=== PATIENT | male | born 1945 | race American Indian/Alaskan Native ===

== ENCOUNTER 2017-05-10 16:39 | Emergency (ER) | payer MEDICARE ==
[2017-05-10 16:52] VITALS: BMI 34.9
[2017-05-10 17:43] LABS: BASO # 0.01 K/mm3 (0.0-2.0); BASO % 0.2 % (0.0-3.0); EOS % 0.2 % (1.5-5.0); GRAN # 3.88 (1.4-6.5); GRAN % 75.5 % (50.0-68.0); HEMOGLOBIN 13.6 g/dL (14.0-18.0); LYMPH # 0.7 (1.2-3.4); LYMPH % 13.4 % (22.0-35.0); MEAN CELL VOLUME 86.4 fl (80.0-105.0); MEAN CORPUSCULAR HEMOGLOBIN 30.4 pg (25.0-35.0); MEAN CORPUSCULAR HGB CONC 35.1 g/dl (31.0-37.0); MEAN PLATELET VOLUME 10.3 fl (7.0-11.0); MONO # 0.6 (0.1-0.6); MONO % 10.7 % (1.0-6.0); RBC 4.48 10^6/uL (3.5-6.1); RED CELL DISTRIBUTION WIDTH 12.6 % (11.5-14.5); WHITE BLOOD COUNT 5.1 10^3/ul (4.5-11.0)
--- NOTE | 2017-05-10 17:47 | ED PDOC ---
Arrival/HPI - General Chief Complaint: Cough, Cold, Congestion Time Seen by Provider: 05/10/17 17:02 Historian: Patient - History of Present Illness Narrative History of Present Illness (Text): 05/10/17 17:40 71yo male with PMHx of hypertension and Diabetes present with 4days history of nonproductive cough, fever, sore throat, generalized bodyache x 5days. He did not take any medication for his symptoms. States that his was sick with similar symptoms first. Denies chest pain, SOB, nausea, vomiting, diarrhea, dizziness, travel, any other complaint. Past Medical History - Provider Review Nursing Documentation Reviewed: Yes - Infectious Disease Hx of Infectious Diseases: None - Cardiac Hx Hypertension: Yes Hx Pacemaker: No - Neurological Hx Paralysis: No - Endocrine/Metabolic Hx Diabetes Mellitus Type 2: Yes - Hematological/Oncological Hx Blood Transfusions: No Hx Blood Transfusion Reaction: No - Musculoskeletal/Rheumatological Hx Musculoskeletal Disorders: Yes (KNEES HURT/ FEET ACHE FALLEN ARCHES) - Psychiatric Hx Emotional Abuse: No Hx Physical Abuse: No Hx Substance Use: No - Anesthesia Hx Anesthesia: No Hx Anesthesia Reactions: No Hx Malignant Hyperthermia: No - Suicidal Assessment Feels Threatened In Home Enviroment: No Family/Social History - Physician Review Nursing Documentation Reviewed: Yes Family/Social History: Unknown Family HX Smoking Status: Former Smoker Hx Alcohol Use: Yes (OCCASIONAL) Frequency of alcohol use: Socially Hx Substance Use: No Allergies/Home Meds Allergies/Adverse Reactions: Allergies No Known Allergies Allergy (Verified 05/10/17 16:52) Home Medications: Home Meds Medication Instructions Recorded Confirmed amLODIPine [Norvasc] 10 mg PO DAILY 04/21/15 05/10/17 Ascorbic Acid [Vitamin C] 500 mg PO DAILY 05/26/15 05/10/17 Metformin HCl [Fortamet] 500 mg PO BID 05/26/15 05/10/17 Vitamin B Complex [B Complex] 1 each PO DAILY 05/26/15 05/10/17 Vitamin E [Vitamin E 400 Units Cap] 400 iu PO DAILY 05/26/15 05/10/17 Review of Systems - Physician Review All systems were reviewed & negative as marked: Yes - Review of Systems Constitutional: Fatigue, Fevers Eyes: Normal ENT: Sore Throat Respiratory: Cough Cardiovascular: Normal Gastrointestinal: Normal Genitourinary Male: Normal Musculoskeletal: Normal Skin: Normal Neurological: Normal Endocrine: Normal Hemo/Lymphatic: Normal Psychiatric: Normal Physical Exam Vital Signs Reviewed: Yes Vital Signs Temp Pulse Resp BP Pulse Ox 05/10/17 18:39 98.5 F 81 16 134/66 97 05/10/17 16:55 100.7 F H 93 H 18 145/86 95 Temperature: Febrile Blood Pressure: Normal Pulse: Regular Respiratory Rate: Normal Appearance: Positive for: Well-Appearing, Non-Toxic, Comfortable Pain Distress: None Mental Status: Positive for: Alert and Oriented X 3 - Systems Exam Head: Present: Atraumatic, Normocephalic Pupils: Present: PERRL Extroacular Muscles: Present: EOMI Conjunctiva: Present: Normal Mouth: Present: Moist Mucous Membranes Pharnyx: Present: Normal Neck: Present: Normal Range of Motion Respiratory/Chest: Present: Clear to Auscultation, Good Air Exchange. No: Respiratory Distress, Accessory Muscle Use, Wheezes, Decreased Breath Sounds, Rales, Retracting, Rhonchi Cardiovascular: Present: Regular Rate and Rhythm, Normal S1, S2. No: Murmurs Abdomen: Present: Normal Bowel Sounds. No: Tenderness, Distention, Peritoneal Signs Back: Present: Normal Inspection Upper Extremity: Present: Normal Inspection. No: Cyanosis, Edema Lower Extremity: Present: Normal Inspection. No: Edema Neurological: Present: GCS=15, CN II-XII Intact, Speech Normal Skin: Present: Warm, Dry, Normal Color. No: Rashes Psychiatric: Present: Alert, Oriented x 3, Normal Insight, Normal Concentration Medical Decision Making ED Course and Treatment: 05/10/17 20:42 Pt was comfortable in ED. His lab was unremarkable. Chest xray NAD Secondary to pt's flu like symptoms, he was febrile on presentation. He was treated with Tamiflu and Zpack for URI. Antitussive and analgesic given. Referred to his PMD. TRT ED for any new or worsening symptoms. - Lab Interpretations Lab Results: 05/10/17 17:28 05/10/17 17:28 Lab Results 05/10/17 17:28: Sodium 133, Potassium 4.1, Chloride 96 L, Carbon Dioxide 26, Anion Gap 14, BUN 13, Creatinine 0.8, Est GFR ( Amer) > 60, Est GFR (Non- Af Amer) > 60, Random Glucose 167 H, Calcium 8.6, Total Bilirubin 0.7, AST 65 H , ALT 51, Alkaline Phosphatase 82, Total Protein 8.8 H, Albumin 3.8, Globulin 5.1, Albumin/Globulin Ratio 0.7 L 05/10/17 17:28: Influenza Typ A,B (EIA) Negative for flu a/b 05/10/17 17:28: WBC 5.1, RBC 4.48, Hgb 13.6 L, Hct 38.7 L, MCV 86.4, MCH 30.4, MCHC 35.1, RDW 12.6, Plt Count 137, MPV 10.3, Gran % 75.5 H, Lymph % (Auto) 13.4 L, [place] % (Auto) 10.7 H, Eos % (Auto) 0.2 L, Baso % (Auto) 0.2, Gran # 3.88 , Lymph # 0.7 L, [place] # 0.6, Eos # 0.0, Baso # 0.01 - RAD Interpretation Radiology Orders: 05/10/17 17:13 CHEST TWO VIEWS (PA/LAT) [RAD] Stat - Medication Orders Current Medication Orders: Discontinued Medications Azithromycin (Zithromax) 500 mg PO STAT STA PRN Reason: Protocol Stop: 05/10/17 19:12 Benzonatate (Tessalon Perles) 100 mg PO ONCE STA Stop: 05/10/17 19:13 Sodium Chloride (Sodium Chloride 0.9%) 1,000 mls @ 999 mls/hr IV .Q1H1M STA Stop: 05/10/17 19:28 Ibuprofen (Motrin Tab) 600 mg PO STAT STA Stop: 05/10/17 17:15 Last Admin: 05/10/17 17:27 Dose: 600 mg MAR Pain/Vitals Document 05/10/17 17:27 RG (Rec: 05/10/17 17:39 [id number]) Pain Reassessment Is This A Pain ReAssessment? No Sleep Is patient sleeping during reassessment? No Presence of Pain Presence of Pain No Pain Scale Used Pain Scale Used Numeric Oseltamivir Phosphate (Tamiflu Cap) 75 mg PO ONCE STA PRN Reason: Protocol Stop: 05/10/17 19:12 Disposition/Present on Arrival - Present on Arrival Any Indicators Present on Arrival: No History of DVT/PE: No History of Uncontrolled Diabetes: No Urinary Catheter: No History of Decub. Ulcer: No History Surgical Site Infection Following: None - Disposition Have Diagnosis and Disposition been Completed?: Yes Diagnosis: URI (upper respiratory infection) Disposition: HOME/ ROUTINE Disposition Time: 19:20 Patient Plan: Discharge Condition: STABLE Discharge Instructions (ExitCare): Upper Respiratory Infection (ED) Additional Instructions: Follow up with your doctor Drink plenty of fluid and rest Return to ED for any new or worsening symptoms Prescriptions: Azithromycin [Zithromax] 250 mg PO DAILY #4 tab Benzonatate [Tessalon Perles] 100 mg PO TID #20 sgl Ibuprofen [Motrin Tab] 600 mg PO Q6 #20 tab Oseltamivir Phosphate [Tamiflu] 75 mg PO BID #10 capsule Referrals: [facility] [place] [Outside] - Follow up with primary Forms: [employer] (Welsh)
[2017-05-10 17:49] LABS: ALB/GLOB RATIO 0.7 (1.1-1.8); ALBUMIN 3.8 g/dL (3.0-4.8); ALT/SGPT 51 U/L (7-56); AST/SGOT 65 U/L (17-59); BLOOD UREA NITROGEN 13 mg/dL (7-21); CALCIUM 8.6 mg/dL (8.4-10.5); GFR AFRICAN-AMERICAN > 60; GFR NON-AFRICAN AMERICAN > 60
[2017-05-10] MEDS ORDERED: Sodium Chloride 0.9% 1,000 ML IV STA (18:28)
[2017-05-10 18:40] VITALS: BP 134/66; PULSE 81; RESP 16; TEMP 98.5; O2SAT 97
== END 2017-05-10 19:32 | disposition home or self-care (01) ==
LOC: ED 16:39
DX: J06.9 Acute upper respiratory infection, unspecified (principal); Z87.891 Personal history of nicotine dependence